=== PATIENT | female | born 1955 | race Caucasian/White ===

== ENCOUNTER 2016-08-20 11:14 | Emergency (ER) | payer MEDICARE ==
[~2016-08-20 11:14] MED LIST: BUSPIRONE HCL5 MG PO; CLARITIN10 MG PO; CYMBALTA30 MG PO; DUONEB 2.5-0.5MG3 ML NEB; ENBREL50 MG/1 M1 SQ; FOLIC ACID1 MG PO; HCTZ25 MG PO; MELOXICAM7.5 MG PO; MOTRIN600 MG PO; PREDNISONE5 MG PO; SYNTHROID75 MCG PO; TREXALL10 MG PO; VISTARIL25 MG PO; ZANTAC150 MG PO; ZOCOR10 MG PO; [UNRECOGNIZED DRUG - OTHER] PO
[2016-08-20 11:57] LABS: BASO % 0.2 % (0.1-1.2); EOS # 0.4 10_X3_uL (0.0-0.4); EOS % 4.2 % (0.7-5.8); GRAN # 7.7 10_X3_uL (1.6-6.1); HEMATOCRIT 39.9 % (34-45); HEMOGLOBIN 13.1 g/dL (11.2-15.7); LYMPH # 1.5 10_X3_uL (1.2-3.7); LYMPH % 14.2 % (19.3-51.7); MEAN CORPUSCULAR HEMOGLOBIN 29.9 pg (27.0-33.0); MEAN CORPUSCULAR HGB CONC 32.8 g/dL (32.0-36.0); MEAN CORPUSCULAR VOLUME 91.1 fL (79-95); MEAN PLATELET VOLUME 10.5 fl (7.5-11.5); MONO # 0.7 10_X3_uL (0.2-0.9); MONO % 6.4 % (4.7-12.5); PLATELET COUNT 363 x10_3/uL (182-369); RED BLOOD COUNT 4.38 x10_6/uL (3.9-5.2); RED CELL DISTRIBUTION WIDTH 14.1 % (11.7-14.4); WHITE BLOOD COUNT 10.3 x10_3/uL (4.0-10.0)
[2016-08-20 12:18] LABS: BLOOD UREA NITROGEN 11 mg/dL (7-18); CALCIUM 9.5 mg/dL (8.7-10.7); CARBON DIOXIDE 22 mmol/L (21-32); CREATININE 0.9 mg/dL (0.6-1.3); GLUCOSE,RANDOM 103 mg/dL (70-99); POTASSIUM 4.4 mmol/L (3.5-5.1); SODIUM 137 mmol/L (136-145); URIC ACID 6.2 mg/dL (2.6-6.0)
== END 2016-08-20 14:08 | disposition home or self-care (01) ==
LOC: ER 11:14
PROVIDERS: General Practice
DX: M25.562 Pain in left knee (principal); G89.29 Other chronic pain; M10.9 Gout, unspecified; M71.22 Synovial cyst of popliteal space [Baker], left knee; M25.462 Effusion, left knee; M06.9 Rheumatoid arthritis, unspecified; M19.90 Unspecified osteoarthritis, unspecified site; Z79.82 Long term (current) use of aspirin; Z79.899 Other long term (current) drug therapy; Z88.8 Allergy status to other drugs, medicaments and biological substances
CPT/HCPCS: 36415; 73700; 80048; 84550; 85025; 96372; 99070; 99284; 99284-25; J1170